=== PATIENT | female | born 1995 ===

== ENCOUNTER 2023-01-05 17:20 | Emergency (ER) | payer OTHER ==
[2023-01-05] MEDS ORDERED: Sodium Chloride 0.9% 1,000 ML IV ONE (20:01)
[2023-01-05] MEDS ORDERED: Sodium Chloride 0.9% 2.5 ML Syringe FLUSH PRN (20:01)
[2023-01-05] MEDS ORDERED: Sodium Chloride 0.9% 10 ML Syringe FLUSH PRN (20:01)
[2023-01-05] MEDS ORDERED: Metoclopramide 10 MG/2 ML SDV IVPUSH ONE (20:01)
[2023-01-05] MEDS ORDERED: diphenhydrAMINE 50 MG/ML SDV IVPUSH ONE (20:01)
[2023-01-05 21:07] LABS: BASOPHILS PERCENT AUTO 0.2 % (0.0-1.5); EOSINOPHILS PERCENT AUTO 0.1 % (0.0-7.0); HEMATOCRIT 41.9 % (36.0-46.0); HEMOGLOBIN 14.6 g/dL (12.0-16.0); LYMPHOCYTES ABSOLUTE AUTO 1.1 K/uL (0.6-2.4); LYMPHOCYTES PERCENT AUTO 7.8 % (16.0-40.0); MEAN CORPUSCULAR HEMOGLOBIN 31.5 pg (27.0-32.0); MEAN CORPUSCULAR HGB CONC 34.8 g/dL (31.0-37.0); MEAN CORPUSCULAR VOLUME 90.3 fL (80.0-98.0); MONOCYTES ABSOLUTE AUTO 0.4 K/uL (0.0-0.8); MONOCYTES PERCENT AUTO 2.9 % (0.0-15.0); NEUTROPHILS ABSOLUTE AUTO 12.1 K/uL (1.4-5.7); NRBC ABSOLUTE 0 K/uL; PLATELET COUNT,PLT 205 K/uL (150-400); RED BLOOD CELL COUNT 4.64 M/uL (4.30-5.90); WHITE BLOOD CELL COUNT,WBC 13.63 K/uL (4.0-11.0)
[2023-01-05 21:35] LABS: A/G RATIO 0.9 (0.9-1.6); ALANINE AMINOTRANSFERASE,ALT 23 IU/L (14-63); ALKALINE PHOSPHATASE 53 U/L (46-116); ASPARTATE AMNIOTRANSFERASE,AST 27 IU/L (15-37); BILIRUBIN TOTAL 0.4 mg/dL (0.2-1.0); BLOOD UREA NITROGEN,BUN 8 mg/dL (7.0-18.0); CARBON DIOXIDE,CO2 23.7 mmol/L (21.0-32.0); CHLORIDE,CL 102 mmol/L (98-107); GLUCOSE RANDOM 100 mg/dL (74-106); MAGNESIUM 2.1 mg/dL (1.8-2.4); POTASSIUM,K 4.1 mmol/L (3.5-5.1); PROTEIN TOTAL,TP 8.5 g/dL (6.4-8.2); SODIUM,NA 136 mmol/L (136-145)
[2023-01-05 21:41] LABS: CALCIUM 9.5 mg/dL (8.5-10.1); CREATININE 0.6 mg/dL (0.6-1.0); LIPASE 33 U/L (16-77)
[2023-01-05 21:54] LABS: ESTIMATED GFR 126 mL/min (>60)
== END 2023-01-05 21:18 | disposition left against medical advice (07) ==
LOC: MW.ED 17:20
DX: O21.9 Vomiting of pregnancy, unspecified (principal); Z3A.09 9 weeks gestation of pregnancy
CPT/HCPCS: 36415; 80053; 83690; 83735; 85025; 96374; 96375; 99284; J1200; J2765; J3490; J7030; 99283

== ENCOUNTER 2023-08-10 18:26 | Inpatient (IN) | payer OTHER ==
[2023-08-10] MEDS ORDERED: Phenylephrine HCl 0.5 MG/5 ML AMP ONE (19:18)
[2023-08-10] MEDS ORDERED: Bupivacaine 0.5% 10 ML SDV ONE (19:18)
[2023-08-10] MEDS: Ropivacaine HCl/PF 200 ML ONE (19:33)
[2023-08-10] MEDS ORDERED: Methylergonovine 0.2 MG/1 ML Amp IM PRN (20:58)
[2023-08-10] MEDS ORDERED: Butorphanol 2 MG/ML SDV IVPUSH PRN (20:58)
[2023-08-10] MEDS ORDERED: Sodium Chloride 0.9% 20 ML SDV IV PRN (20:58)
[2023-08-10] MEDS ORDERED: Tranexamic Acid IN NACL,ISO-OS 1,000 MG in Premix Bag 1 BAG IV PRN (20:58)
[2023-08-10] MEDS ORDERED: Water For Irrigation,Sterile 1,000 ML Container IRR PRN (20:58)
[2023-08-10] MEDS ORDERED: Misoprostol 200 MCG Tab PO PRN (20:58)
[2023-08-10] MEDS ORDERED: Sodium Chloride 0.9% 2.5 ML Syringe FLUSH PRN (20:58)
[2023-08-10] MEDS ORDERED: Sodium Chloride 0.9% 10 ML Syringe FLUSH PRN (20:58)
[2023-08-10] MEDS ORDERED: Carboprost Tromethamine 250 MCG/1 mL Vial IM PRN (20:58)
[2023-08-10] MEDS ORDERED: Lidocaine 1% 50 ML MDV INJECT PRN (20:58)
[2023-08-10] MEDS ORDERED: Oxytocin/0.9 % Sodium Chloride 30 UNIT/500 ML BAG IV SCH (21:00)
[2023-08-10 21:10] LABS: HEMATOCRIT 40.2 % (37.0-47.0); MEAN CORPUSCULAR HEMOGLOBIN 31.8 pg (28.0-32.0); MEAN CORPUSCULAR HGB CONC 34.8 g/dL (32.0-36.0); MEAN CORPUSCULAR VOLUME 91.4 fL (83.0-99.0); MEAN PLATELET VOLUME 12.4 fL (9.4-12.3); PLATELET COUNT,PLT 165 K/uL (150-400); WHITE BLOOD CELL COUNT,WBC 17.79 K/uL (3.9-11.3)
[2023-08-10] MEDS: Ondansetron 4 MG/2 ML SDV IVPUSH PRN (21:12)
[2023-08-10] MEDS: Lactated Ringers 1,000 ML IV SCH (21:20)
[2023-08-10] MEDS: Oxytocin/0.9 % Sodium Chloride 30 UNIT/500 ML BAG IV SCH (21:50)
[2023-08-10] MEDS ORDERED: Lanolin 100% Cream 7 GM Tube TOP PRN (23:38)
[2023-08-11] MEDS: Benzocaine/Menthol 20%-0.5% Spray 78 GM Cannister TOP PRN (01:50)
[2023-08-11] MEDS: Witch Hazel Medicated Pads 40/Jar TOP PRN (01:50)
[2023-08-11 06:15] LABS: HEMATOCRIT 35.3 % (37.0-47.0); HEMOGLOBIN 12.2 g/dL (12.0-16.0)
[2023-08-11] MEDS: Ibuprofen 800 MG Tab PO PRN (09:01)
[2023-08-11] MEDS: Acetaminophen 500 MG Tab PO PRN (10:46)
[2023-08-11] MEDS: Docusate Sodium 100 MG Cap PO PRN (21:49)
== END 2023-08-12 01:06 | disposition home or self-care (01) | DRG 806 ==
LOC: MW.OBCHECK 18:26 → MW.OB 20:59 → MW.OBCHECK 23:14 → OBSVTOIN 23:14 → MW.OB 23:14
PROVIDERS: ADMIT Pediatrics; ATTEND Obstetrics & Gynecology Obstetrics
PROC: 10E0XZZ Delivery of Products of Conception, External Approach (ICD-10-PCS; principal; 2023-08-10)
PROC: 3E033VJ Introduction of Other Hormone into Peripheral Vein, Percutaneous Approach (ICD-10-PCS; 2023-08-10)
PROC: 3E0334Z Introduction of Serum, Toxoid and Vaccine into Peripheral Vein, Percutaneous Approach (ICD-10-PCS; 2023-08-10)
DX: O26.893 Other specified pregnancy related conditions, third trimester (principal); O99.354 Diseases of the nervous system complicating childbirth; Z37.0 Single live birth; G43.909 Migraine, unspecified, not intractable, without status migrainosus; Z67.11 Type A blood, Rh negative; O48.0 Post-term pregnancy; Z88.8 Allergy status to other drugs, medicaments and biological substances; Z3A.40 40 weeks gestation of pregnancy
CPT/HCPCS: 01967; 36415; 85014; 85018; 85027; 85460; 86592; 86850; 86900; 86901; A9270-GY; J0665; J2371; J2405; J2590; J2790; J2795; J7120